=== PATIENT | female | born 1995 | race African-American/Black ===

== ENCOUNTER 2020-12-28 19:15 | Emergency (ER) | payer OTHER ==
[~2020-12-28] VITALS: Ht 165.1 cm; Wt 72.6 kg
[2020-12-28] MEDS ORDERED: LIDODERM1 EACH TOP (20:23)
[2020-12-28] MEDS ORDERED: ROBAXIN 750 MG750 MG PO (20:23)
[2020-12-28 20:32] VITALS: BP 113/68
== END 2020-12-28 20:32 | disposition home or self-care (01) ==
LOC: ER 19:15
DX: S46.912A Strain of unspecified muscle, fascia and tendon at shoulder and upper arm level, left arm, initial encounter (principal); V49.9XXA Car occupant (driver) (passenger) injured in unspecified traffic accident, initial encounter; Y93.89 Activity, other specified; Y92.89 Other specified places as the place of occurrence of the external cause; Y99.8 Other external cause status

== ENCOUNTER 2021-06-28 01:55 | Emergency (ER) | payer OTHER ==
[~2021-06-28] VITALS: Ht 165.1 cm; Wt 74.8 kg
[~2021-06-28 01:55] MED LIST: LIDODERM1 EACH TOP; ROBAXIN 750 MG750 MG PO
[2021-06-28 04:49] VITALS: BP 134/78
== END 2021-06-28 04:52 | disposition home or self-care (01) ==
LOC: ER 01:55
PROVIDERS: Emergency Medicine
DX: U07.1 COVID-19 (principal); R51.9 Headache, unspecified; N89.8 Other specified noninflammatory disorders of vagina; Z79.899 Other long term (current) drug therapy

== ENCOUNTER 2021-06-28 12:11 | Emergency (ER) | payer OTHER ==
[~2021-06-28] VITALS: Ht 165.1 cm; Wt 72.6 kg
[2021-06-28 12:41] VITALS: BP 128/76
== END 2021-06-28 13:10 | disposition home or self-care (01) ==
LOC: ER 12:11
DX: U07.1 COVID-19 (principal); R51.9 Headache, unspecified; M79.10 Myalgia, unspecified site

== ENCOUNTER 2021-10-22 22:43 | Emergency (ER) | payer BC ==
[~2021-10-22] VITALS: Ht 165.1 cm; Wt 72.6 kg
[2021-10-22 23:29] LABS: URINE BILIRUBIN NEGATIVE (Negative); URINE BLOOD TRACE (Negative); URINE CLARITY SL CLOUDY; URINE COLOR YELLOW; URINE GLUCOSE-RANDOM* NEGATIVE (Negative); URINE KETONES NEGATIVE (Negative); URINE LEUKOCYTES-REFLEX TRACE (Negative); URINE PROTEIN (DIPSTICK) TRACE (Negative); URINE SPECIFIC GRAVITY >= 1.030 (1.005-1.035); URINE UROBILINOGEN 0.2 E.U./dl (0.2-1.0)
[2021-10-22 23:30] LABS: URINE NITRITE-REFLEX POSITIVE (Negative)
[2021-10-23 00:09] LABS: CASTS None Seen /LPF (None Seen); CRYSTALS None Seen /LPF (None Seen); MUCUS 4-6 Moderate strn/LPF (None Seen); SQUAMOUS 4-10 Moderate /LPF (0-3); URINE RBC 3-10 Few /HPF (NONE SEEN); URINE WBC-REFLEX 0-5 Rare /HPF (0-5)
[2021-10-23 00:18] VITALS: BP 114/76
[2021-10-23] MEDS ORDERED: DOXYCYCLINE 10100 MG PO (13:08)
[2021-10-24] MEDS ORDERED: DOXYCYCLINE 10100 MG PO (09:20)
== END 2021-10-23 00:19 | disposition home or self-care (01) ==
LOC: ER 22:43
PROVIDERS: Student in an Organized Health Care Education/Training Program
DX: N89.8 Other specified noninflammatory disorders of vagina (principal)